=== PATIENT | male | born 1980 | race Caucasian/White ===

== ENCOUNTER 2018-02-12 11:12 | Outpatient (CLI) | payer BC, SELFPAY ==
--- NOTE | 2018-02-12 14:49 | DI.RAD_ITS ---
SYMPTOMS/DIAGNOSIS: PAIN LT WRIST, M25.539 LEFT WRIST: Three views were obtained. There are mild degenerative changes of the carpus most pronounced at the radiocarpal joints and the multangular metacarpal joints. No other significant bony abnormality is seen. The alignment appears within normal limits.
== END 2018-02-12 11:32 ==
PROVIDERS: PCP Family Medicine; Visit Provider Internal Medicine
DX: M25.532 Pain in left wrist (principal); M19.032 Primary osteoarthritis, left wrist
CPT/HCPCS: 73110

== ENCOUNTER 2018-04-25 00:11 | Outpatient (CLI) | payer BC, SELFPAY ==
--- NOTE | 2018-04-25 12:45 | DI.RAD_ITS ---
SYMPTOMS/DIAGNOSIS: LEFT WRIST PAIN, M25.532 C-ARM FLUOROSCOPY, LEFT WRIST: Fluoroscopy Time: 5 sec C-arm fluoroscopy was utilized by Dr. Hoff during left wrist injection. Please see Dr. Hoff's procedure note.
[2018-04-25] MEDS: Bupivacaine 0.5% Pres-Free 10 ML VIAL IJ (13:34)
[2018-04-25] MEDS: Omnipaque 300 MG/ML 10 ML BTL IJ (13:34)
[2018-04-25] MEDS: methylPREDNISolone ACETATE 40 MG/ML VIAL IM (13:35)
--- NOTE | 2018-04-25 17:45 | OPPNE_ITS ---
Date of service: 04/25/18 Time of Service: 17:44 Procedure Note Date of procedure: 04/25/18 Procedure: Left Wrist Injection Surgeon/Proceduralist/Physician: Issa Hoff Procedure Diagnosis: Left Wrist Pain Procedure Indications: Luis Alfredo is a 37-year-old who has left wrist pain. He has been seen at [facility] for the evaluation of the left wrist. It was recommended that he try an intra-articular wrist injection. I was contacted by [facility] to perform the procedure. I reviewed the indications for it including his diagnostic and therapeutic nature. Also with possible c omplications, primarily knee pain from the injection no relief of pre-injection symptoms. Procedure Description: Luis Alfredo was greeted in the fluoroscopy suite where the correct site was identified. Consent was reviewed with patient and signed. The dorsum of the left wrist was prepped with ChloraPrep. Sterile field was prepared. Using the C arm the spinal injection was localized. The skin overlying this area was anesthetized with 1% lidocaine. A 22-gauge needle was then inserted into the wrist joint between the distal ulna and the proximal row of the carpus. Initially, the contrast seem to collect in the soft tissues adjacent to the capsule. The needle was redirected and there is then filled in the radiocarpal joint. I then injected 2 cc of 0.5 cm bupivacaine along with 40 mg of Depo-Medrol. He did have some pain from the pressure of the injection which subsided within a few minutes. A Band-Aid was applied.
== END 2018-04-25 00:31 ==
PROVIDERS: PCP Family Medicine; Visit Provider Student in an Organized Health Care Education/Training Program
DX: M25.532 Pain in left wrist (principal)
CPT/HCPCS: 20605; 77002; J1030

== ENCOUNTER 2018-08-29 20:10 | Emergency (ER) | payer BC, SELFPAY ==
[2018-08-29 20:12] VITALS: BP 150/108; PULSE 85; RESP 20; TEMP 37.1; O2SAT 98
--- NOTE | 2018-08-29 20:17 | DI.RAD_ITS ---
SYMPTOM/DIAGNOSIS: FELL, LACERATION TO OLECRANON, ? FX OR FOREIGN BODY RIGHT ELBOW: Three views were obtained. There is no evidence of an elbow joint effusion or hemarthrosis. The patient reportedly has a laceration of the olecranon region and there is corresponding soft tissue defect. No gross foreign body or underlying fracture. No additional bony abnormality is seen.
--- NOTE | 2018-08-29 20:26 | W.ED.GENAD ---
Discharge Plan Disposition Patient Disposition: HOME Condition: Good Discharge Details Chief Complaint: Laceration Clinical Impression: Laceration of elbow, right Primary Care Provider: Dimitri Keyes ED Provider: Junito Toney Home Meds and New Rx's Prescriptions: No Action ibuprofen 200 MG tablet 400 mg PO PRN PRNRF: 0 Discharge Instructions Instructions: Care For Your Stitches (ED), Laceration (ED) Additional Instructions: Please return in 10 days for reevaluation of your laceration and removal of your stitches. Please do not significantly flex her elbow as this can cause tearing of the stitches and worsening of the situation. Please try to keep your elbow straight at all times. Do not perform any significant sports or activities which will cause strain or flexion on the tip of your elbow. Please leave the dressing on for 24 hours, then you may remove and begin cleaning the wound at least twice a day with soap and water. Do not directly soak the area. Watch for any signs of infection and return if any increasing redness, swelling, pain, drainage. Referrals: Dimitri Keyes MD [Primary Care Provider] - Medical Decision Making This is a very pleasant 38-year-old male with no past medical history who presents for evaluation of laceration of his right elbow. It occurred roughly 8 hours ago, however because of where he was working there was a delay until he could get here. Tetanus is not up-to-date. Exam demonstrates a mild V-shaped laceration, no tendon or bony involvement, no weakness, no neurovascular compromise distal to the injury site. No actual pain or tenderness on palpation. X-ray shows no evidence of significant fracture or foreign body per virtual radiology. The area was anesthetized with 5 mL's of lidocaine without epinephrine, the area was then scrubbed vigorously with chlorhexidine, he was then irrigated with copious amounts of normal saline and chlorhexidine. 4 simple interrupted 4-0 Ethilon sutures were placed with excellent wound edge reapproximation. Dermabond was placed over the nights. Patient tolerated the procedure well. Patient will be discharged home with instructions for close follow-up, return for suture removal. We discussed red flags which return the patient understands. I have extensively reviewed the treatment plan and discharge instructions with the patient and their family. I have addressed all patient concerns at this time. The patient and family was made aware of what symptoms to monitor for that would warrant a return to the emergency department. Discussed the plan with the patient and family, they demonstrate verbal understanding and agreement with our assessment and plan at this time. CLINICAL HISTORY: 38 years old, male; Injury or trauma; Initial encounter; Laceration; Right; Injury date: 08/29/2018; Injury details: Fall, elbow vs aluminum stairs TECHNIQUE: Imaging protocol: XR Right elbow. Views: 3 or more views. COMPARISON: No relevant prior studies available. FINDINGS: Bones/joints: Osseous anatomic alignment is well preserved. No acutely displaced fracture or dislocation. Joint spaces are well preserved. Soft tissues: Soft tissue swelling and soft tissue emphysema about the olecranon process. No radiopaque foreign bodies. IMPRESSION: 1. Negative for acute skeletal pathology. 2. Small laceration and subcutaneous inflammatory changes about the olecranon process. Thank you for allowing us to participate in the care of your patient. Dictated and Authenticated by: Robel Gonzalez MD HPI General Date/Time Provider Initiated Documentation: 08/29/18 20:11. HPI Narrative: This is a 38-year-old male with no significant past medical history whose tetanus is not up-to-date who is right-hand dominant who presents today for evaluation of laceration to his right elbow. The patient states that roughly 78 hours ago while he was out working he slipped on his truck and hit his right elbow onto the metal step. The area was slightly dirty. He put a Band-Aid on it, continued work, went to his child's baseball game, and then came into the ER tonight for further evaluation and suturing. Patient denies any associated numbness tingling or pain. He denies any significant pain with movement or flexion or extension of the elbow. He denies any other complaints. No other modifying factors. He denies any recent surgeries. He denies any IV or illicit drug use. He denies any pertinent family history Related Data Home Medications Medication Instructions Recorded Confirmed ibuprofen 400 mg PO PRN PRN 09/21/17 08/29/18 Allergies Allergy/AdvReac Type Severity Reaction Status Date / Time No Known Drug Allergies Allergy Unverified 08/29/18 20:16 General Stated Complaint: Laceration AKILA: 4 Review of Systems Review of Systems All systems reviewed & are unremarkable except as noted in HPI and below PFSH Family History Mother Diabetes Heart disease Stomach cancer Father Lung cancer Social History Smoking/Tobacco Use Status: Never Alcohol Intake: current Alcohol Intake frequency: 0-2 drinks per day Alcohol type: beer and wine Substance use type: former substance user and marijuana Household members: other Details: 3 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 3.ENT: Atraumatic external nose and ears. Moist MM. Neck: Symmetric, trachea midline, No thyromegaly. 4.CVS: +S1/S2, No murmurs or gallops. Peripheral pulses 2+ and equal in all extremities. Brisk capillary refill in all extremities. 5.RESP: Unlabored respiratory effort. Clear to auscultation bilaterally. No wheezes rales or rhonchi 6.GI: Soft, Nontender/Nondistended, No hepatosplenomegaly. No guarding or rebound. 7.MSK: Normocephalic/Atraumatic, Extremities w/o deformity or ttp No cyanosis or clubbing, Normal movement of all extremities. No pain on palpation of the olecranon, no evidence of deformity. No significant swelling. Normal movement of the hand and all fingers, intact two-point discrimination of the fingers, brisk capillary refill, radial pulses +2 bilaterally. 8.Skin: Warm, Dry. Small V-shaped laceration with total length being 1.5 cm on the right olecranon. No evidence of bony or tendon involvement on exploration. No evidence of foreign bodies. 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 Sensation grossly intact, no focal neurologic deficits. 10.Psych: (AAO) x3. Appropriate mood and affect Course Vital Signs Temperature 37.1 C 08/29/18 20:12 Pulse 85 08/29/18 20:12 Respiratory Rate 20 08/29/18 20:12 Blood Pressure 150/108 H 08/29/18 20:12 Pulse Oximetry 98 08/29/18 20:12 Temperature 37.1 C 08/29/18 20:12 Temperature Source Skin 08/29/18 20:12 Pulse 85 08/29/18 20:12 Respiratory Rate 20 08/29/18 20:12 Respiratory Effort Non-Labored 08/29/18 20:19 Blood Pressure 150/108 H 08/29/18 20:12 Blood Pressure Position Sitting 08/29/18 20:12 Pulse Oximetry 98 08/29/18 20:12 Oxygen Delivery Method Room Air 08/29/18 20:12 Oxygen Flow Rate 0 08/29/18 20:12
--- NOTE | 2018-08-29 21:11 | DI.VRAD_ITS ---
EXAM: XR Right Elbow Complete, 3 or more Views EXAM DATE/TIME: 08/29/2018 8:18 PM CLINICAL HISTORY: 38 years old, male; Injury or trauma; Initial encounter; Laceration; Right; Injury date: 08/29/2018; Injury details: Fall, elbow vs aluminum stairs TECHNIQUE: Imaging protocol: XR Right elbow. Views: 3 or more views. COMPARISON: No relevant prior studies available. FINDINGS: Bones/joints: Osseous anatomic alignment is well preserved. No acutely displaced fracture or dislocation. Joint spaces are well preserved. Soft tissues: Soft tissue swelling and soft tissue emphysema about the olecranon process. No radiopaque foreign bodies. IMPRESSION: 1. Negative for acute skeletal pathology. 2. Small laceration and subcutaneous inflammatory changes about the olecranon process. Dictated and Authenticated by: Robel Tristan MD. Ordering:AMARA Wild MD
== END 2018-08-29 21:03 | disposition home or self-care (01) ==
LOC: ER 20:37
PROVIDERS: Emergency Provider Student in an Organized Health Care Education/Training Program; PCP Family Medicine
DX: S51.011A Laceration without foreign body of right elbow, initial encounter (principal); W01.198A Fall on same level from slipping, tripping and stumbling with subsequent striking against other object, initial encounter
CPT/HCPCS: 12001; 90471; 99283; 73080; 99282

== ENCOUNTER 2018-09-08 14:05 | Emergency (ER) | payer BC, SELFPAY ==
[2018-09-08 14:11] VITALS: BP 145/92; PULSE 98; RESP 16; TEMP 36.6; O2SAT 97
--- NOTE | 2018-09-08 14:25 | W.ED.GENAD ---
Discharge Plan Disposition Patient Disposition: HOME Condition: Good Discharge Details Chief Complaint: GenMedical Clinical Impression: Visit for wound check Primary Care Provider: Dimitri Keyes ED Provider: Junito Toney Home Meds and New Rx's Prescriptions: New cephalexin [Keflex] 500 mg capsule 500 mg PO QID 10 Days Qty: 40 RF: 0 sulfamethoxazole-trimethoprim [Bactrim DS] 800-160 mg tablet 1 tab PO Q12H 10 Days Qty: 20 RF: 0 No Action ibuprofen 200 MG tablet 400 mg PO PRN PRNRF: 0 Discharge Instructions Instructions: Cellulitis (ED) Additional Instructions: There appears to be mild cellulitis around the initial laceration site. Take the Keflex 4 times a day and the Bactrim twice daily. Please return on the of this month for wound check reassessment and suture removal. If you notice any worsening of your symptoms, or any new symptoms such as spreading redness, discharge from your elbow vomiting, diarrhea, fever, chills, shortness of breath, chest pain, numbness, weakness, or fainting , please return immediately to the emergency department for reevaluation. Please follow up with your primary care provider as soon as possible for reassessment and reevaluation. As always, it was a pleasure participating in your medical care today. Referrals: Dimitri Keyes MD [Primary Care Provider] - Discharge Data Discharge Date/Time-TO BE ENTERED AT DEPARTURE: 09/08/18 14:33 Medical Decision Making This is a 38-year-old male presents today for evaluation of wound recheck. 9 days ago he lacerated the extensor surface of his right elbow on his truck step. 4 simple interrupted sutures were placed. 2 days ago he noticed a small amount of redness around his right arm/elbow. He presents for evaluation. Exam demonstrates minimal erythema extending roughly 2 to 3 cm in radius around the central laceration. Laceration itself is otherwise very well healing, no evidence of dehiscence, fluctuance, or drainage. Exam demonstrates no fluid collection on ultrasound exam. Minimal warmth. Vital signs are normal with no fever, or tachycardia. At this time I do feel that it is reasonable to leave the sutures in for 2-3 more days as the laceration is still on the extensor surface with notable tension. We will start the patient on Keflex and Bactrim coverage of MRSA and gram-positive strep. We discussed the importance of continued close follow-up and recommend that he return in 3 days for wound reassessment and suture removal. We discussed red flags which to return and the patient understands. HPI General Date/Time Provider Initiated Documentation: 09/08/18 14:11. HPI Narrative: This is a pleasant 38-year-old male who presents for wound recheck. Roughly 9 days ago the patient cut his right arm on the metal step on his truck. It was sutured with 4 simple interrupted sutures after being washed out. It is on the extensor aspect of his elbow. Patient presents today for mild redness that he noticed starting yesterday around the elbow. He denies any drainage, fever, chills or pain with movement of his elbow. He denies any other complaints or modifying factors. Related Data Home Medications Medication Instructions Recorded Confirmed ibuprofen 400 mg PO PRN PRN 09/21/17 08/29/18 cephalexin [Keflex] 500 mg PO QID 10 Days #40 cap 09/08/18 sulfamethoxazole-trimethoprim 1 tab PO Q12H 10 Days #20 tab 09/08/18 [Bactrim DS] Previous Rx's Medication Instructions Recorded cephalexin [Keflex] 500 mg PO QID 10 Days #40 cap 09/08/18 sulfamethoxazole-trimethoprim 1 tab PO Q12H 10 Days #20 tab 09/08/18 [Bactrim DS] Allergies Allergy/AdvReac Type Severity Reaction Status Date / Time No Known Drug Allergies Allergy Unverified 09/08/18 14:11 General Stated Complaint: GenMedical AKILA: 4 Review of Systems Review of Systems All systems reviewed & are unremarkable except as noted in HPI and below PFSH Family History Mother Diabetes Heart disease Stomach cancer Father Lung cancer Social History Smoking/Tobacco Use Status: Never Alcohol Intake: current Alcohol Intake frequency: 0-2 drinks per day Alcohol type: beer and wine Substance use type: does not use, former substance user and marijuana Household members: other Details: 3 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 3.ENT: Atraumatic external nose and ears. Moist MM. Neck: Symmetric, trachea midline, No thyromegaly. 4.CVS: +S1/S2, No murmurs or gallops. Peripheral pulses 2+ and equal in all extremities. Brisk capillary refill in all extremities. 5.RESP: Unlabored respiratory effort. Clear to auscultation bilaterally. No wheezes rales or rhonchi 6.GI: Soft, Nontender/Nondistended, No hepatosplenomegaly. No guarding or rebound. 7.MSK: Normocephalic/Atraumatic, Extremities w/o deformity or ttp No cyanosis or clubbing, Normal movement of all extremities 8.Skin: Warm, Dry. No rashes or lesions. Right elbow demonstrates intact sutures, no evidence of dehiscence. Excellent wound healing is noted. No evidence of drainage or discharge. Mild erythema is noted roughly 2 cm in radius circumferentially around the laceration site. No fluctuance, tenderness, minimal warmth is present compared to the left side. Bedside ultrasound demonstrates no evidence of fluid collection. The patient has no movement tenderness, or pain with movement in his right elbow. 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 Sensation grossly intact, no focal neurologic deficits. 10.Psych: (AAO) x3. Appropriate mood and affect Course Vital Signs Temperature 36.6 C 09/08/18 14:11 Pulse 98 H 09/08/18 14:11 Respiratory Rate 16 09/08/18 14:11 Blood Pressure 145/92 H 09/08/18 14:11 Pulse Oximetry 97 09/08/18 14:11 Temperature 36.6 C 09/08/18 14:11 Temperature Source Temporal Artery Scan 09/08/18 14:11 Pulse 98 H 09/08/18 14:11 Respiratory Rate 16 09/08/18 14:11 Respiratory Effort 09/08/18 14:11 Blood Pressure 145/92 H 09/08/18 14:11 Blood Pressure Position Sitting 09/08/18 14:11 Pulse Oximetry 97 09/08/18 14:11 Oxygen Delivery Method Room Air 09/08/18 14:11 Oxygen Flow Rate 0 09/08/18 14:11
[2018-09-08 14:30] VITALS: BP 145/92; PULSE 98; RESP 16; TEMP 36.6; O2SAT 97
[2018-09-08] MEDS: Sulfameth/Trimeth DS TAB 1 TAB PO (14:30)
[2018-09-08] MEDS: Cephalexin 500 MG CAP PO (14:30)
== END 2018-09-08 14:33 | disposition home or self-care (01) ==
PROVIDERS: Emergency Provider Student in an Organized Health Care Education/Training Program; PCP Family Medicine
DX: L03.113 Cellulitis of right upper limb (principal); S51.011D Laceration without foreign body of right elbow, subsequent encounter; W01.198D Fall on same level from slipping, tripping and stumbling with subsequent striking against other object, subsequent encounter
CPT/HCPCS: 99283

== ENCOUNTER 2018-09-14 08:25 | Emergency (ER) | payer BC, SELFPAY ==
--- NOTE | 2018-09-14 08:29 | W.ED.GENAD ---
Discharge Plan Disposition Patient Disposition: HOME Condition: Stable Discharge Details Chief Complaint: SutureRem Clinical Impression: Encounter for removal of sutures Primary Care Provider: Dimitri Keyes ED Provider: Luis Alfredo Wooten Home Meds and New Rx's Prescriptions: No Action cephalexin [Keflex] 500 mg capsule 500 mg PO QID 10 Days Qty: 40 RF: 0 sulfamethoxazole-trimethoprim [Bactrim DS] 800-160 mg tablet 1 tab PO Q12H 10 Days Qty: 20 RF: 0 ibuprofen 200 MG tablet 400 mg PO PRN PRNRF: 0 Discharge Instructions Instructions: Stitches Removal (ED) Medical Decision Making patient comes in for suture removal. Had the sutures placed over a week ago, was placed on abx for possible cellulitis around the right posterior elbow laceration on 09/10. Has no residual redness around the wound, full rom and no swelling of the joint. Do not feel additional abx or testing indicated and wound appears appropriate for suture removal. Nursing to remove, return precauitons given Differential Diagnosis suture removal, laceration HPI General Mode of arrival: ambulatory. Date/Time Provider Initiated Documentation: 09/14/18 08:25. Limitations to Documentation: no limitations. Information obtained by: patient. History of Present Illness 38 year old M presents to the emergency department with the chief complaint of suture removal, described as mild, and is localized to the right and upper extremity. Patient reports no radiation. No relieving factors improve symptom(s), No exacerbating factors reported . Patient notes no other symptoms.. Related Data Home Medications Medication Instructions Recorded Confirmed ibuprofen 400 mg PO PRN PRN 09/21/17 08/29/18 cephalexin [Keflex] 500 mg PO QID 10 Days #40 cap 09/08/18 sulfamethoxazole-trimethoprim 1 tab PO Q12H 10 Days #20 tab 09/08/18 [Bactrim DS] Previous Rx's Medication Instructions Recorded cephalexin [Keflex] 500 mg PO QID 10 Days #40 cap 09/08/18 sulfamethoxazole-trimethoprim 1 tab PO Q12H 10 Days #20 tab 09/08/18 [Bactrim DS] Allergies Allergy/AdvReac Type Severity Reaction Status Date / Time No Known Drug Allergies Allergy Unverified 09/08/18 14:11 General AKILA: 4 Review of Systems Review of Systems All systems reviewed & are unremarkable except as noted in HPI and below Constitutional Denies chills and Denies fever(s) Cardiovascular Denies chest pain and Denies dyspnea Respiratory Denies dyspnea Gastrointestinal Denies abdominal pain, Denies nausea and Denies vomiting PFSH Family History Mother Diabetes Heart disease Stomach cancer Father Lung cancer Social History Smoking/Tobacco Use Status: Never Alcohol Intake: current Alcohol Intake frequency: 0-2 drinks per day Alcohol type: beer and wine Substance use type: does not use, former substance user and marijuana Household members: other Details: 3 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 Pets and animals: Yes Pets and animals: dog(s) What type of physical activity do you participate in: walking and aerobic Duration: > 90 minutes/day Frequency: daily Maddie/Anglican: No preference Special maddie needs: No Do you feel safe at home: Yes Do you feel safe in your relationship?: Yes Exam Const General: no acute distress Orientation: alert HENMT Head: normal to inspection Ears: external ears normal General nose exam: external nose normal Mouth: moist mucous membranes Eyes General: appearance normal, both eyes and all related structures Neck Neck: normal visual inspection Resp Effort & Inspection: normal respiratory effort and able to speak in complete sentences Cardio Rate: regular rate Skin General skin exam: no rashes or lesions noted Neuro General: alert and oriented x3 Extrem General: normal to inspection Psych Mental Status: mental status grossly normal
[2018-09-14 08:30] VITALS: PULSE 88; RESP 20; TEMP 36.8; O2SAT 98
[2018-09-14 08:35] VITALS: PULSE 88; RESP 20; TEMP 36.8; O2SAT 98
--- NOTE | 2018-09-14 08:35 | ED.GENADUL_ITS ---
Discharge Plan Disposition Patient Disposition: HOME Condition: Stable Discharge Details Chief Complaint: SutureRem Clinical Impression: Encounter for removal of sutures Primary Care Provider: Dimitri Keyes ED Provider: Luis Alfredo Wooten Home Meds and New Rx's Prescriptions: No Action cephalexin [Keflex] 500 mg capsule 500 mg PO QID 10 Days Qty: 40 RF: 0 sulfamethoxazole-trimethoprim [Bactrim DS] 800-160 mg tablet 1 tab PO Q12H 10 Days Qty: 20 RF: 0 ibuprofen 200 MG tablet 400 mg PO PRN PRNRF: 0 Discharge Instructions Instructions: Stitches Removal (ED) Medical Decision Making patient comes in for suture removal. Had the sutures placed over a week ago, was placed on abx for possible cellulitis around the right posterior elbow laceration on 09/10. Has no residual redness around the wound, full rom and no swelling of the joint. Do not feel additional abx or testing indicated and wound appears appropriate for suture removal. Nursing to remove, return precauitons given Differential Diagnosis suture removal, laceration HPI General Mode of arrival: ambulatory . Date/Time Provider Initiated Documentation: 09/14/18 08:25 . Limitations to Documentation: no limitations . Information obtained by: patient . History of Present Illness 38 year old M presents to the emergency department with the chief complaint of suture removal, described as mild, and is localized to the right and upper extremity. Patient reports no radiation. No relieving factors improve symptom(s), No exacerbating factors reported . Patient notes no other symptoms.. Related Data Home Medications Medication Instructions Recorded Confirmed ibuprofen 400 mg PO PRN PRN 09/21/17 08/29/18 cephalexin [Keflex] 500 mg PO QID 10 Days #40 cap 09/08/18 sulfamethoxazole-trimethoprim 1 tab PO Q12H 10 Days #20 tab 09/08/18 [Bactrim DS] Previous Rx's Medication Instructions Recorded cephalexin [Keflex] 500 mg PO QID 10 Days #40 cap 09/08/18 sulfamethoxazole-trimethoprim 1 tab PO Q12H 10 Days #20 tab 09/08/18 [Bactrim DS] Allergies Allergy/AdvReac Type Severity Reaction Status Date / Time No Known Drug Allergies Allergy Unverified 09/08/18 14:11 General AKILA: 4 Review of Systems Review of Systems All systems reviewed & are unremarkable except as noted in HPI and below Constitutional Denies chills and Denies fever(s) Cardiovascular Denies chest pain and Denies dyspnea Respiratory Denies dyspnea Gastrointestinal Denies abdominal pain, Denies nausea and Denies vomiting PFSH Family History Mother Diabetes Heart disease Stomach cancer Father Lung cancer Social History Smoking/Tobacco Use Status: Never Alcohol Intake: current Alcohol Intake frequency: 0-2 drinks per day Alcohol type: beer and wine Substance use type: does not use, former substance user and marijuana Household members: other Details: 3 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 Pets and animals: Yes Pets and animals: dog(s) What type of physical activity do you participate in: walking and aerobic Duration: > 90 minutes/day Frequency: daily Maddie/Adventism: No preference Special maddie needs: No Do you feel safe at home: Yes Do you feel safe in your relationship?: Yes Exam Const General: no acute distress Orientation: alert HENMT Head: normal to inspection Ears: external ears normal General nose exam: external nose normal Mouth: moist mucous membranes Eyes General: appearance normal, both eyes and all related structures Neck Neck: normal visual inspection Resp Effort & Inspection: normal respiratory effort and able to speak in complete sentences Cardio Rate: regular rate Skin General skin exam: no rashes or lesions noted Neuro General: alert and oriented x3 Extrem General: normal to inspection Psych Mental Status: mental status grossly normal
== END 2018-09-14 08:35 | disposition home or self-care (01) ==
LOC: ER 08:32
PROVIDERS: Emergency Provider Emergency Medicine; PCP Family Medicine
DX: S51.011D Laceration without foreign body of right elbow, subsequent encounter (principal); X58.XXXD Exposure to other specified factors, subsequent encounter; Z48.02 Encounter for removal of sutures

== ENCOUNTER 2018-10-01 12:40 | Outpatient (REF) | payer BC, SELFPAY | END 2018-10-01 13:00 | LOC: LBN 12:40 | PROVIDERS: PCP Family Medicine; Visit Provider Internal Medicine | DX: L08.9 Local infection of the skin and subcutaneous tissue, unspecified (principal); S50.319A Abrasion of unspecified elbow, initial encounter | CPT/HCPCS: 87070; 87205 ==

== ENCOUNTER 2019-03-14 01:38 | Outpatient (CLI) | payer BC, SELFPAY ==
--- NOTE | 2019-03-14 06:49 | DI.RAD_ITS ---
EXAM: RF JOINT INJECTION FLUORO GUID CLINICAL HISTORY: L WRIST PAIN, M25.532, LT WRIST INJECTION. TECHNIQUE: 2D and realtime digital imaging was performed. COMPARISON: No exams were available for comparison FINDINGS: Fluoroscopy was provided for Dr. Hoff for guidance with wrist injection. Please see procedure no te for details. Fluoro Time: 6 seconds
[2019-03-14] MEDS: Bupivacaine 0.5% Pres-Free 10 ML VIAL 2 ML IJ (13:48)
[2019-03-14] MEDS: Omnipaque 300 MG/ML 10 ML BTL IJ (13:48)
[2019-03-14] MEDS: methylPREDNISolone ACETATE 40 MG/ML VIAL IM (13:49)
--- NOTE | 2019-03-16 07:06 | OPPNE_ITS ---
Date of service: 03/14/19 Time of Service: 14:06 Procedure Note Date of procedure: 03/14/19 Procedure: Left Wrist Intra-articular injection Surgeon/Proceduralist/Physician: Issa Hoff Procedure Diagnosis: Left Wrist Pain Procedure Indications: Luis Alfredo is a 38-year-old who has had some left wrist pain following an injury. Initial evaluation by a hand specialist at [facility] recommended intra-articular wrist injection. I performed this for him greater than 1 year ago with excellent results. Unfortunately on the last few months he has had increasing left wrist pain. Therefore, he desired to repeat the injection. I reviewed the risk of the procedure to include continued pain and infection. Despite these risk, he elected to proceed. Procedure Description: Luis Alfredo was greeted in the fluoroscopy suite where the correct site was identified. Consent was reviewed with patient and signed. The dorsum of the left wrist was prepped with ChloraPrep. Sterile field was prepared. Using the C arm the spinal injection was localized. The skin overlying this area was anesthetized with 1% lidocaine. A 22-gauge needle was then inserted into the wrist joint between the distal ulna and the proximal row of the carpus. Contrast was injected and was seen in the radiocarpal joint. I then injected 2 cc of 0.5 cm bupivacaine along with 40 mg of Depo-Medrol. He did have some pain from the pressure of the injection which subsided within a few minutes. A Band- Aid was applied.
== END 2019-03-14 01:58 ==
PROVIDERS: PCP Family Medicine; Visit Provider Student in an Organized Health Care Education/Training Program
DX: M25.532 Pain in left wrist (principal)
CPT/HCPCS: 20605; 77002; J1030

== ENCOUNTER 2020-02-17 12:41 | Outpatient (CLI) | payer OTHER, SELFPAY ==
--- NOTE | 2020-02-17 09:03 | DI.RAD_ITS ---
EXAM: XR WRIST LT COMPLETE CLINICAL HISTORY: left wrist pain. TECHNIQUE: 2D digital imaging was performed. COMPARISON: No exams were available for comparison FINDINGS: There is mild radial carpal joint space narrowing. There are degenerative changes the 1st carpal met acarpal joint. There is a chronic appearing deformity of the trapezium. There is soft tissue swelli ng are around the ulnar styloid. The bones appear osteopenic. No bony erosions are identified. IMPRESSION: Degenerative changes and soft tissue swelling. DATA REPOSITORY: RADIATION DOSE DELIVERED:
== END 2020-02-17 13:01 ==
PROVIDERS: PCP Nurse Practitioner Family; Referring Provider Nurse Practitioner Family; Visit Provider Physician Assistant Surgical
DX: M25.532 Pain in left wrist (principal); M18.12 Unilateral primary osteoarthritis of first carpometacarpal joint, left hand; M79.89 Other specified soft tissue disorders
CPT/HCPCS: 73110

== ENCOUNTER 2020-02-24 02:09 | Outpatient (CLI) | payer OTHER, SELFPAY ==
[2020-02-24 07:46] LABS: Abs Immature Grans 0.03 10^3/uL (0.0-0.06); Absolute Basophil Count 0.04 10^3/uL (0.0-0.2); Absolute Eosinophil Count 0.31 10^3/uL (0.0-0.7); Absolute Lymphocyte Count 1.55 10^3/uL (1.2-3.4); Absolute Monocyte Count 0.82 10^3/uL (0.1-0.8); Absolute Neutrophil Count 3.75 10^3/uL (1.2-6.7); Basophils % 0.6; Eosinophils % 4.8; HCT 43.6 % (40.0-50.0); HGB 14.8 g/dL (13.5-17.5); Immature Grans % 0.5; Lymphocytes % 23.8; MCHC 33.9 % (32.0-36.0); MCV 88.3 fL (80-95); MPV 9.2 fL (8.0-11.0); Monocytes % 12.6; Neutrophils % 57.7; Nucleated RBC 0 %; Platelet Count 209 10^3/uL (130-400); RBC 4.94 10^6/uL (4.36-5.78); RDW 11.7 % (11.8-14.1); RDW-SD 37.5 fL
[2020-02-24 08:25] LABS: ESR 14 mm/hr (0-15)
[2020-02-24 08:53] LABS: ALT 37 U/L (16-63); AST 17 U/L (15-37); Albumin 3.8 g/dL (3.4-5.0); Alkaline Phosphatase 103 U/L (46-116); Anion Gap 6.4 mmol/L (3-11); BUN 13 mg/dL (7-18); Bilirubin, Total 0.4 mg/dL (0.2-1.0); C-Reactive Protein 1.55 mg/dL (0.0-0.3); CO2 28.6 mmol/L (21.0-32.0); CREATININE 0.91 mg/dL (0.70-1.30); Calcium 9.1 mg/dL (8.5-10.1); Chloride 104 mmol/L (98-107); Glucose 119 mg/dL (74-106); Potassium 4.5 mmol/L (3.5-5.1); Sodium 139 mmol/L (136-145); Total Protein 7.2 g/dL (6.4-8.2); Uric Acid 5.5 mg/dL (3.5-7.2)
[2020-02-24 17:06] LABS: Rheumatoid Factor <8.6 IU/mL (<12.0)
[2020-02-25 10:28] LABS: Lyme Ab w Rflx to Lyme Confirm Negative (Negative)
[2020-02-25 17:04] LABS: ANA Interpretation Negative (Negative)
[2020-02-26 18:56] LABS: Anaplasma phagocytophilum Negative (Negative); B. miyamotoi PCR Negative (Negative); Babesia divergens/MO-1 Negative (Negative); Babesia duncani Negative (Negative); Babesia microti Negative (Negative); Ehrlichia chaffeensis Negative (Negative); Ehrlichia ewingii/canis Negative (Negative); Ehrlichia muris eauclairensis Negative (Negative)
== END 2020-02-24 02:29 ==
PROVIDERS: PCP Nurse Practitioner Family; Visit Provider Physician Assistant Surgical
DX: M19.032 Primary osteoarthritis, left wrist (principal); M67.332 Transient synovitis, left wrist; M25.532 Pain in left wrist
CPT/HCPCS: 36415; 80053; 85652; 87798; 84550; 85025; 86038; 86140; 86431; 86618

== ENCOUNTER 2021-09-23 08:42 | Outpatient (CLI) | payer OTHER, SELFPAY ==
--- NOTE | 2021-09-23 08:30 | DI.RAD_ITS ---
Exam(s) XR WRIST LT COMPLETE EXAM: XR WRIST LT COMPLETE CLINICAL HISTORY: LEFT WRIST OA. TECHNIQUE: 2D digital imaging was performed of the left wrist. Three images were obtained. PA, obl ique and lateral views were obtained. COMPARISON: CR XR WRIST LT COMPLETE from 02/17/2020 FINDINGS: BONES: No acute fracture is present. No bony destructive lesion is seen. JOINTS: The carpal bones are normally aligned. There are stable degenerative changes of the wrist. SOFT TISSUE: Generalized soft tissue swelling of the wrist is noted. IMPRESSION: Stable degenerative changes of the left wrist. DATA REPOSITORY: RADIATION DOSE DELIVERED:
== END 2021-09-23 08:43 | disposition home or self-care (01) ==
LOC: DIORS 08:42
PROVIDERS: PCP Nurse Practitioner Family; Referring Provider Nurse Practitioner Family; Visit Provider Student in an Organized Health Care Education/Training Program
DX: M25.532 Pain in left wrist; M19.032 Primary osteoarthritis, left wrist
CPT/HCPCS: 73110

== ENCOUNTER 2022-06-23 11:25 | Outpatient (CLI) | payer OTHER, SELFPAY ==
[2022-06-23 12:53] LABS: Calculated LDL 183 mg/dL (<100); Cholesterol 254 mg/dL (<200); Glucose 93 mg/dL (74-106); HDL Cholesterol 45 mg/dL (40-60); Triglyceride 131 mg/dL (<150)
[2022-07-02 14:18] LABS: Testosterone, Free 6.36 ng/dL (4.46-17.1); Testosterone, Total 198 ng/dL (240-950)
== END 2022-06-23 11:26 | disposition home or self-care (01) ==
LOC: LOS 11:25
PROVIDERS: PCP Nurse Practitioner Family; Referring Provider Family Medicine; Visit Provider Family Medicine
DX: Z00.00 Encounter for general adult medical examination without abnormal findings (principal); E78.5 Hyperlipidemia, unspecified; R73.9 Hyperglycemia, unspecified; F41.8 Other specified anxiety disorders; N52.8 Other male erectile dysfunction
CPT/HCPCS: 36415; 80061; 82947; 84402; 84403

== ENCOUNTER 2022-09-22 10:25 | Emergency (ER) | payer OTHER, SELFPAY ==
[2022-09-22 10:29] VITALS: BP 139/80; PULSE 80; RESP 16; TEMP 36.7; O2SAT 99
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
--- NOTE | 2022-09-22 12:27 | NUR.NOTE ---
Nursing Note: Referral given to Care Management to [facility] Hand Specialist: already a pt there. For chronic wrist arthritis, for first available appt.
--- NOTE | 2022-09-22 13:18 | PDOC.CMACT ---
Date of service: 09/22/22 Time of Service: 13:18 Care Management Activity Note Activity Note Text Activity Note Text: Luis Alfredo is seen in the ED for contusion of left wrist and left hand. At the request of ED provider, CM coordinates a referral to [facility] [place] [place] Orthopaedics (Hand Specialist) to assist Luis Alfredo in obtaining a follow up appointment for further evaluation and treatment.
== END 2022-09-22 12:38 | disposition home or self-care (01) ==
PROVIDERS: Emergency Provider Physician Assistant; PCP Nurse Practitioner Family
DX: S60.222A Contusion of left hand, initial encounter (principal); W20.8XXA Other cause of strike by thrown, projected or falling object, initial encounter; S60.212A Contusion of left wrist, initial encounter
CPT/HCPCS: 99284; 73110; 73130; 99283

== ENCOUNTER 2023-07-31 06:09 | Outpatient (CLI) | payer OTHER, SELFPAY ==
[2023-07-31 13:05] LABS: Calculated LDL 118 mg/dL (<100); Cholesterol 194 mg/dL (<200); HDL Cholesterol 54 mg/dL (40-60); TSH (W/Ref FT4) 1.84 uIU/mL (0.36-3.74); Triglyceride 113 mg/dL (<150)
[2023-07-31 13:37] LABS: Hemoglobin A1C 5.3 % (<5.7)
[2023-08-06 16:51] LABS: Testosterone, Free 7.33 ng/dL (4.46-17.1); Testosterone, Total 189 ng/dL (240-950)
== END 2023-07-31 06:10 | disposition home or self-care (01) ==
PROVIDERS: PCP Nurse Practitioner Family; Visit Provider Nurse Practitioner Family
DX: R53.83 Other fatigue (principal); E78.2 Mixed hyperlipidemia; Z13.1 Encounter for screening for diabetes mellitus
CPT/HCPCS: 36415; 80061; 84402; 84403; 83036; 84443

== ENCOUNTER 2024-09-05 02:00 | Outpatient (CLI) | payer OTHER, SELFPAY ==
[2024-09-05 14:54] LABS: Hemoglobin A1C 5.3 % (<5.7)
[2024-09-05 15:20] LABS: Calculated LDL 120 mg/dL (<100); Cholesterol 198 mg/dL (<200); HDL Cholesterol 53 mg/dL (>or=40); Triglyceride 126 mg/dL (<150)
[2024-09-19 13:11] LABS: Testosterone, Free 7.43 ng/dL (4.46-17.1); Testosterone, Total 266 ng/dL (240-950)
== END 2024-09-05 02:01 | disposition home or self-care (01) ==
PROVIDERS: PCP Nurse Practitioner Family; Visit Provider Nurse Practitioner Family
DX: Z13.220 Encounter for screening for lipoid disorders (principal); Z13.1 Encounter for screening for diabetes mellitus; E29.1 Testicular hypofunction
CPT/HCPCS: 36415; 80061; 84402; 84403; 83036